=== PATIENT | female | born 1955 | race Caucasian/White ===

== ENCOUNTER 2021-03-05 13:56 | Day surgery (SDC) | payer MEDICARE, BC ==
[~2021-03-05] VITALS: Ht 167.6 cm; Wt 103.6 kg
[~2021-03-05 13:56] MED LIST: ALBU90OI; GLUCHON; MELATONIN1 M1; NAPR220; Prinivil10 MG
[2021-03-05] MEDS ORDERED: TUMS500 MG (14:14)
[2021-03-05] MEDS ORDERED: Ocuvite Preser1 EACH (14:14)
== END 2021-03-05 16:05 | disposition home or self-care (01) ==
LOC: ORSCSDS 13:56
PROVIDERS: Internal Medicine Gastroenterology
PROC: 0DBM8ZX Excision of Descending Colon, Via Natural or Artificial Opening Endoscopic, Diagnostic (ICD-10-PCS; principal; 2021-03-05 15:00)
PROC: 0DB68ZX Excision of Stomach, Via Natural or Artificial Opening Endoscopic, Diagnostic (ICD-10-PCS; principal; 2021-03-05 15:00)
PROC: 0DB58ZX Excision of Esophagus, Via Natural or Artificial Opening Endoscopic, Diagnostic (ICD-10-PCS; principal; 2021-03-05 15:00)
DX: Z12.11 Encounter for screening for malignant neoplasm of colon (principal); Z86.010 Personal history of colon polyps; K22.70 Barrett's esophagus without dysplasia; D12.4 Benign neoplasm of descending colon; R09.89 Other specified symptoms and signs involving the circulatory and respiratory systems; K29.70 Gastritis, unspecified, without bleeding; E61.1 Iron deficiency; E78.5 Hyperlipidemia, unspecified; K20.90 Esophagitis, unspecified without bleeding; K44.9 Diaphragmatic hernia without obstruction or gangrene; K64.8 Other hemorrhoids; K57.30 Diverticulosis of large intestine without perforation or abscess without bleeding; Z79.899 Other long term (current) drug therapy
CPT/HCPCS: 88305; J2704

== ENCOUNTER 2024-06-22 06:16 | Day surgery (SDC) | payer MEDICARE, BC ==
[~2024-06-22] VITALS: Ht 165.1 cm; Wt 83.5 kg
[2024-06-22] VITALS (9 sets, daily range): BP systolic 91–118; BP diastolic 54–84
[~2024-06-22 06:16] MED LIST changes: -ALBU90OI; +ALBU90OI INH; +C COMPLEX1000 M1 PO; +ELIQUIS5 M2 PO; +ENTRESTO 24 MG1 EACH PO; +LISI20 PO; -MELATONIN1 M1; +MELATONIN1 M1 PO; +METO50 PO; +OMEP20ER PO; +Ocuvite Preser1 EACH; +PSYLLIUM FIBER0.4 GM PO; +PSYSENPA; +SENN187 PO; +TUMS500 MG; +[UNRECOGNIZED DRUG - OTHER] PO
[2024-06-22] MEDS ORDERED: NS 1,000 ML IV ONE (06:28)
--- NOTE | 2024-06-22 07:10 | NUR ---
ASSUMED CARE FROM ANESTHESIA. PT CARDIOVERTED /C 247J. SR 70-80BPM POST CARDIOVERSION. PT AWAKE AND VERBALIZING WELL.
--- NOTE | 2024-06-22 08:15 | NUR ---
PT AND SON VERBALIZED UNDERSTANDING OF WRITTEN AND VERBAL D/C INST. IV REMOVED. PT IN SR 75BPM ON D/C. PT TAKEN OUT OF THE [facility]RT CENTER VIA W/C.
== END 2024-06-22 23:00 | disposition home or self-care (01) ==
LOC: MHTC 06:16
DX: I48.91 Unspecified atrial fibrillation (principal); I42.9 Cardiomyopathy, unspecified; I10 Essential (primary) hypertension; E78.5 Hyperlipidemia, unspecified; Z79.01 Long term (current) use of anticoagulants; Z79.899 Other long term (current) drug therapy; Z88.0 Allergy status to penicillin; Z88.5 Allergy status to narcotic agent; Z88.8 Allergy status to other drugs, medicaments and biological substances; Z90.49 Acquired absence of other specified parts of digestive tract; Z90.710 Acquired absence of both cervix and uterus
CPT/HCPCS: 92960; 93005; 93010; J7030